=== PATIENT | female | born 1990 | race African-American/Black ===

== ENCOUNTER → 2020-07-13 14:24 | Outpatient (BNVA) | payer OTHER, SELFPAY | PROVIDERS: Visit Provider Obstetrics & Gynecology | DX: Z30.46 Encounter for surveillance of implantable subdermal contraceptive (principal) | CPT/HCPCS: 11982 ==

== ENCOUNTER 2021-02-19 11:24 | Outpatient (REF) | payer OTHER, SELFPAY ==
[2021-02-20 09:22] LABS: BV Int Neg Control Negative (Negative); BV Int Pos Control Positive (Positive)
== END 2021-02-19 11:25 | disposition home or self-care (01) ==
LOC: HO.LNP 11:24
PROVIDERS: Visit Provider Hospitalist
DX: B37.3 Candidiasis of vulva and vagina (principal)
CPT/HCPCS: 87086; 87480; 87510; 87660

== ENCOUNTER 2021-02-22 09:27 | Emergency (ER) | payer OTHER, SELFPAY ==
[2021-02-22 09:58] VITALS: BP 135/89; PULSE 102; RESP 18; TEMP 36.7; O2SAT 98; BMI 45.1
--- NOTE | 2021-02-22 10:37 | ED.FEMALEGU ---
HPI - Female Genitourinary General Chief complaint: Urogenital-Female Stated complaint: Abcess Time Seen by Provider: 02/22/21 10:36 Source: patient Mode of arrival: ambulatory Limitations: no limitations History of Present Illness HPI Narrative: Patient is a 30-year-old female with no significant past medical history who states she has some vaginal itching and discomfort x1 week. She states she went to urgent care 5 days ago and was tested for bacterial vaginosis panel and urinalysis. She states she never got results. She did receive a prescription for a UTI and for yeast. She has taken both prescriptions in full. She was not tested For gonorrhea or chlamydia at that time. She denies discharge or fevers. Patient states she is sexually active with 1 partner, it is not a new partner but she would like to be tested for STIs today. Related Data Previous Rx's Medication Instructions Recorded fluconazole 150 mg tablet 150 mg PO Q OTHER DAY 3 Days #2 tab 02/18/21 sulfamethoxazole 800 1 tab PO BID #14 tab 02/18/21 mg-trimethoprim 160 mg tablet doxycycline hyclate 100 mg PO BID 7 Days #14 tab 02/22/21 Allergies Allergy/AdvReac Type Severity Reaction Status Date / Time amoxicillin [Augmentin] Allergy Unknown rash Verified 02/22/21 09:58 clavulanic acid [Augmentin] Allergy Unknown rash Verified 02/22/21 09:58 Review of Systems Review of Systems: Yes all other systems are reviewed and are negative [facility] Past Medical History Medical History Patient denies medical problems Family History Family History Father History of liver disease Mother Family hx of hypertension Social History Social History Alcohol intake: current Alcohol intake frequency: holidays/special occasions only Alcohol type: beer, wine, hard liquor and other Advance Directives: No Advance Directives Information Provided: No Patient : No Sexual orientation: Straight/Heterosexual Gender identity: female Physical Exam Vital Signs: Vital Signs: Last Vital Signs Temp 98.0 F 02/22/21 09:58 Pulse 102 H 02/22/21 09:58 Resp 18 02/22/21 09:58 BP 135/89 02/22/21 09:58 Pulse Ox 98 02/22/21 09:58 Body Mass Index 45.1 Const: General: cooperative, healthy appearing, comfortable, no acute distress and well developed Orientation/consciousness: patient oriented x3 Limitations: no limitations HENMT: Head: Yes normal to inspection Eyes: General: appearance normal, both eyes and all related structures Neck: Neck: Yes normal visual inspection and Yes full ROM Resp: Effort & Inspection: normal respiratory effort and able to speak in complete sentences GI: Inspection: Yes normal to inspection Palpation (GI): Soft to palpation and nontender : External Female Exam: erythema, externally tender, No external swelling, No lesion, No laceration, No External ecchymosis (female), No urethral discharge, No lesion and No tender Skin: General skin exam: no rashes or lesions noted Neuro: General: patient oriented x3 Extrem: General: Yes normal to inspection Course Course Course Narrative: Advised patient that she was negative for the bacterial vaginosis panel. Discussed precautions for gonorrhea and chlamydia, will treat for both today. MDM - Female Genitourinary Lab Data Attestation: I reviewed the patient's lab results. Labs: Patient had bacterial vaginosis panel done on 02/18, negative. UA was also negative at that time. Discharge Plan Discharge Clinical Impression: Vaginitis Qualifiers: Chronicity: acute Qualified Code(s): N76.0 - Acute vaginitis Patient Disposition: Home, Self-Care Instructions: Sexually Transmitted Diseases (ED) Additional Instructions: If you do test positive for either gonorrhea or chlamydia, we will call you to let you know. If you do test positive, please do not have sexual relations for the next 30 days. You have been treated today for both, I have sent a prescription for doxycycline to your pharmacy, please take this prescription in full. As discussed, please do not go in this son when you are taking doxycycline as you could have a skin reaction. If you do test positive for either gonorrhea or chlamydia, please inform her partner so they can be tested and treated and both of you will need to be tested in 30 days to ensure you have cleared the disease. Prescriptions: New doxycycline hyclate 100 mg tablet 100 mg PO BID 7 Days Qty: 14 RF: 0 No Action sulfamethoxazole-trimethoprim [Bactrim DS] 800-160 mg tablet 1 tab PO BID Qty: 14 RF: 0 fluconazole 150 mg tablet 150 mg PO Q OTHER DAY 3 Days Qty: 2 RF: 0
[2021-02-22] MEDS: cefTRIAXone sodium 500 MG, Lidocaine HCl 1 % MPF 1 ML IM (12:17)
[2021-02-22 12:25] LABS: Glucose Urine UA NEG (NEG); Leukocyte Esterase Urine NEG (NEG); Nitrite Urine NEG (NEG); PH 6.5 (5.0-8.0); Specific Gravity - Urine <= 1.005 (1.005-1.025); Urine Blood TRACE (NEG); Urine Ketones NEG (NEG); Urine Protein NEG (NEG-TRACE)
[2021-02-22 12:36] LABS: Appearance Urine CLEAR; Color Urine YELLOW
[2021-02-22 12:44] LABS: UPreg QC Valid YES; Urine Pregnancy NEG (NEGATIVE)
[2021-02-22 13:01] LABS: Bacteria Urine TRACE /LPF; RBC Urine 0-2 /HPF (0); Squamous Epithelial Cell Urine 1+ /LPF; WBC Urine 0 /HPF (0-4)
[2021-02-22 14:39] LABS: CT PCR NOT DETECTED (Not Detect.); NG PCR DETECTED (Not Detect.)
== END 2021-02-22 12:52 | disposition home or self-care (01) ==
PROVIDERS: Physician Assistant; Emergency Provider Emergency Medicine; PCP Internal Medicine
DX: A54.02 Gonococcal vulvovaginitis, unspecified (principal)
CPT/HCPCS: 36415; 81001; 81025; 87491; 87591; 96372; 99282; 99284; J0696

== ENCOUNTER 2021-05-14 08:34 | Outpatient (REF) | payer OTHER, SELFPAY ==
[2021-05-15 09:20] LABS: CT PCR NOT DETECTED (Not Detect.); NG PCR NOT DETECTED (Not Detect.)
[2021-05-15 09:53] LABS: BV Int Neg Control Negative (Negative); BV Int Pos Control Positive (Positive)
== END 2021-05-14 08:35 | disposition home or self-care (01) ==
LOC: HO.LAB 08:34
PROVIDERS: PCP Internal Medicine; Visit Provider Obstetrics & Gynecology
DX: B37.3 Candidiasis of vulva and vagina (principal); Z11.3 Encounter for screening for infections with a predominantly sexual mode of transmission; Z11.8 Encounter for screening for other infectious and parasitic diseases; Z88.1 Allergy status to other antibiotic agents
CPT/HCPCS: 87480; 87491; 87510; 87591; 87660; 99212

== ENCOUNTER 2021-08-30 09:26 | Outpatient (REF) | payer OTHER, SELFPAY ==
[2021-08-30 14:08] LABS: CT PCR NOT DETECTED (Not Detect.); NG PCR NOT DETECTED (Not Detect.)
[2021-08-31 09:49] LABS: BV Int Neg Control Negative (Negative); BV Int Pos Control Positive (Positive)
[2021-09-03 12:56] LABS: HPV mRNA E6/E7 rflx Not Detected (Not Detected)
== END 2021-08-30 09:27 | disposition home or self-care (01) ==
LOC: HO.LAB 09:26
PROVIDERS: PCP Internal Medicine; Visit Provider Advanced Practice Midwife
DX: Z12.4 Encounter for screening for malignant neoplasm of cervix (principal); Z11.51 Encounter for screening for human papillomavirus (HPV); Z20.2 Contact with and (suspected) exposure to infections with a predominantly sexual mode of transmission; E66.01 Morbid (severe) obesity due to excess calories; F43.10 Post-traumatic stress disorder, unspecified; Z86.19 Personal history of other infectious and parasitic diseases
CPT/HCPCS: 87480; 87491; 87510; 87591; 87624; 87660; 88142

== ENCOUNTER 2022-07-08 10:16 | Outpatient (REF) | payer OTHER, SELFPAY ==
[2022-07-08 12:27] LABS: Influenza A PCR POSITIVE (Negative); Influenza B PCR NEGATIVE (Negative); Resp Syncy Virus RNA Qual PCR NEGATIVE (Negative); SARS COV2 PCR INHOUSE NEGATIVE (Negative)
== END 2022-07-08 10:17 | disposition home or self-care (01) ==
LOC: HO.LAB 10:16
PROVIDERS: Visit Provider Internal Medicine
DX: Z20.822 Contact with and (suspected) exposure to COVID-19 (principal); R43.9 Unspecified disturbances of smell and taste
CPT/HCPCS: 0241U

== ENCOUNTER 2022-07-18 08:33 | Outpatient (REF) | payer OTHER, SELFPAY ==
[2022-07-18 11:27] LABS: MANUAL DIFF FLAG NO
[2022-07-18 11:50] LABS: Basophils Percent Auto 0.3 % (0-2); Eosinophils Absolute Auto 0.2 X10*3/uL (0.0-0.4); Eosinophils Percent Auto 2.3 % (0-4); Hematocrit 41.7 % (37.0-47.0); Hemoglobin 14.1 g/dl (12.0-16.0); Imm Gran Abs Auto 0.05 X10*3/uL (0.00-0.03); Imm Gran Pct Auto 0.5 % (0.0-0.4); Mean Corpuscular HGB Conc 33.8 g/dl (31.0-35.0); Mean Corpuscular Hemoglobin 31.3 pg (27.0-33.0); Mean Corpuscular Volume 92.7 fL (80.0-98.0); Mean Platelet Volume 9.2 fL (9.4-12.3); Monocytes Absolute Auto 0.5 X10*3/uL (0.1-1.2); Monocytes Percent Auto 5.3 % (2-11); Neutrophils Absolute Auto 6.1 x10*3/uL (2.0-8.3); Neutrophils Percent Auto 61.6 % (45-73); Platelet Count 336 X10*3/uL (160-400); Red Cell Distribution Width 11.7 % (11.0-16.0); White Blood Count 9.9 X10*3/uL (4.8-10.8)
[2022-07-18 13:49] LABS: Alanine Aminotransferase 26 U/L (0-31); Albumin Level 4.1 g/dL (3.5-5.0); Alkaline Phosphatase 62 U/L (39-117); Anion Gap 11 (12-20); Aspartate Amino Transferase 17 U/L (5-31); Bilirubin Total 0.5 mg/dL (0.0-1.0); Blood Urea Nitrogen 11 mg/dL (9-16); Calcium 9.5 mg/dL (8.4-10.2); Carbon Dioxide 25 mmol/L (22-29); Chloride 107 mmol/L (96-108); Cholesterol 251 mg/dL; Estimated Glomerular Filt Rate > 60; Glucose Fasting 98 mg/dL (60-99); HDL Cholesterol 61 mg/dL; LDL Cholesterol Calculated 162 mg/dl; Potassium 4.5 mmol/L (3.3-5.1); Sodium 138 mmol/L (135-145); TSH reflex Free T4 0.97 uIU/mL (0.32-4.0); Total Protein 6.9 g/dL (6.5-8.0); Triglycerides 141 mg/dL
[2022-07-24 12:19] LABS: Vitamin D 25-OH, D2 <4 ng/mL; Vitamin D 25-OH, D3 27 ng/mL; Vitamin D 25-OH, Total 27 ng/mL (30-100)
== END 2022-07-18 08:34 | disposition home or self-care (01) ==
LOC: HO.HMGCLDS 08:33
PROVIDERS: PCP Internal Medicine; Visit Provider Internal Medicine
DX: Z00.01 Encounter for general adult medical examination with abnormal findings (principal); F41.1 Generalized anxiety disorder; E66.01 Morbid (severe) obesity due to excess calories
CPT/HCPCS: 36415; 80053; 80061; 82306; 84443; 85025

== ENCOUNTER 2023-03-19 08:08 | Outpatient (AMB) | payer OTHER, SELFPAY ==
--- NOTE | 2023-03-19 08:09 | A.OFFVIS_ITS ---
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 Scribed for BRADLEY Awan by Alem Macias biomedical engineer, on 03/19/2023 at 8:25 am EST. Transportation Mechanic Required: No Information Interpreted: non-clinical & clinical Electron Beam Welding Machine Operator: Electron Beam Welding Machine Operator Present (Rashida) Allergies amoxicillin [Augmentin] Allergy (Unknown, Verified 02/06/23 08:32) rash clavulanic acid [Augmentin] Allergy (Unknown, Verified 02/06/23 08:32) rash Is last menstrual period known: Yes Last menstrual period: 02/24/23 Post menopausal: No Patient : No HPI HPI Comments History of Present Illness Details She is a premenopausal woman presenting for annual exam. Admits depression and anxiety and is working on to getting a therapist. Reports seeing an internal vaginal lump without pain. She admits to eating healthy and tries to stay active with exercise. Currently sexually active. Uses condoms for BC. Has IUD in the past and experienced irregular bleeding. Regular monthly periods. Denies vaginal itching and irritation. STD screening offered and STD blood work; she accepts. Denies family hx of breast, colon and ovarian cancer. Last pap smear 08/30/21. She denies any contraindications to control such as: migraines with aura, history of DVT or pulmonary emboli, high blood pressure, liver disease, thrombolic disorders, Lupus, +OMAR, or smoking. Reviewed use, side effects and warnings including ACHES. [facility] Medical History Anxiety Depression Patient denies medical problems Family History Father History of liver disease Substance use disorder Mental health disorder Mother Family hx of hypertension Mental health disorder Sister Substance use disorder Mental health disorder Sister Mental health disorder Diabetes Sister Mental health disorder Maternal Grandmother Diabetes Social History Housing: House Alcohol intake: current Alcohol intake frequency: holidays/special occasions only Alcohol type: beer, wine, hard liquor and other Patient Tobacco Use Status: Never used Tobacco e-Cigarette/Vaping Use: Never Used Second Hand Smoke Exposure: No service: No Current occupational status: employed Sexual orientation: Straight/Heterosexual Gender identity: Female Cognitive needs: No Hearing needs: No Vision needs: No Female Reproductive History Menstrual Age of Menarche: 11 Duration of menses: 3-5 days Date of last menstrual period: 02/24/23 control method: none Total pregnancies: 1 Full term: 1 Number of Living Children: 1 Date of last pap smear: 08/30/21 (neg pap and hpv) History of abnormal pap smear: Yes (03/2020 +HPV) Physical Exam Vital Signs: Last Vital Signs BP 110/62 03/19/23 08:10 BMI result Body Mass Index 44.5 Const General: cooperative, healthy appearing, no acute distress, well developed and alert Orientation/consciousness: patient oriented x3 HEENT Head: Yes normal to inspection Eyes General: appearance normal, both eyes and all related structures Neck Neck: Yes normal visual inspection Thyroid: Thyroid normal Chest Chest palpation & inspection: normal inspection of the chest Breast/axilla inspection: normal inspection of the breasts (no puckering, dimpling, peau de orange, retraction, discharge, masses) Breast/axilla palpation: normal palpation of the breasts Resp Effort & Inspection: normal respiratory effort GI Inspection: Yes normal to inspection Palpation (GI): Soft to palpation (to palpation) Rectal Exam - Female: deferred Other: deep cervix; longest speculum utilized. General: Yes bladder normal to inspection External Female Exam: normal external appearance and normal appearance of the urethra Speculum Exam - Vagina: normal appearance of the vagina, normal palpation, normal vaginal discharge and other (normal hymenal tissue (area of patient concern)) Speculum Exam - Cervix: normal appearance of the cervix, normal palpation and Other cervical findings present (bled slightly with pap) Bimanual exam- vagina & uterus: normal palpation, normal palpation and other (limited due to body habitus) Bimanual Exam- Adnexa, other: normal adnexae and no masses Skin General skin exam: no rashes or lesions noted Neuro General: patient oriented x3 Cognition (Neuro): normal cognition Extrem General: Yes normal to inspection Psych Other: anxious/tense with exam, breathing and relaxation techniques utilized throughout the pelvic examination. Attitude: cooperative Thought process: Normal thought process present Assessment & Plan Assessment & Plan (1) Encounter for well woman exam: Code(s): Z01.419 - Encounter for gynecological examination (general) (routine) without abnormal findings Plan: Discussed: Current recommendations for pap smears per ASCCP guidelines Breast awareness and periodic self breast exams. Maintaining a healthy lifestyle including a well balanced diet and routine exercise. Normal anatomical evaluation; pt was reassured. Encouraged to use condoms for STD and prevention. RTO for control consult. Encouraged patient to sign up for patient portal. All of her questions and concerns were addressed to the best of my ability. RTO in one year for AG. (2) Potential exposure to STD: Code(s): Z20.2 - Contact with and (suspected) exposure to infections with a predominantly sexual mode of transmission Plan: BV testing and GC/CT panel done today. STD blood work ordered. Await results and treat accordingly. (3) control counseling: Code(s): Z30. - Encounter for other general counseling and advice on contraception Plan: Literature given. Contact office if decided to start BC. (4) Anxiety: Code(s): F41.9 - Anxiety disorder, unspecified (5) Depression: Code(s): F32.A - Depression, unspecified Orders: Orders CT NG by PCR Today [id number] - Encounter for gynecological examination (general) (routine) without abnormal findings Hepatitis B Core Antibody Today Z20.2 - Contact with and (suspected) exposure to infections with a predominantly sexual mode of transmission Hepatitis C Antibody Today Z20.2 - Contact with and (suspected) exposure to infections with a predominantly sexual mode of transmission HIV Ab/Ag Today Z20.2 - Contact with and (suspected) exposure to infections with a predominantly sexual mode of transmission Syphilis Screen Today Z20.2 - Contact with and (suspected) exposure to infections with a predominantly sexual mode of transmission Pap Smear Today Z01.419 - Encounter for gynecological examination (general) (routine) without abnormal findings Coding Level of Care Code Est Pt Prev Care 18-39y(83099) Diagnoses Encounter for well woman exam Z01.419 Potential exposure to STD Z20.2 control counseling Z30. Anxiety F41.9 Depression F32.A
[2023-03-19 08:10] VITALS: BP 110/62; BMI 44.5
== END 2023-03-19 08:49 | disposition home or self-care (01) ==
LOC: HO.HWS 08:08
PROVIDERS: PCP Internal Medicine; Visit Provider Advanced Practice Midwife
DX: Z01.419 Encounter for gynecological examination (general) (routine) without abnormal findings (principal); Z20.2 Contact with and (suspected) exposure to infections with a predominantly sexual mode of transmission; Z30.09 Encounter for other general counseling and advice on contraception; F41.9 Anxiety disorder, unspecified; F32.A Depression, unspecified
CPT/HCPCS: 99395

== ENCOUNTER 2023-03-19 08:08 | Outpatient (REF) | payer OTHER, SELFPAY ==
[2023-03-20 05:11] LABS: CT PCR NOT DETECTED (Not Detect.); NG PCR NOT DETECTED (Not Detect.)
[2023-03-24 05:09] LABS: HPV mRNA E6/E7 rflx Not Detected (Not Detected)
== END 2023-03-19 08:09 | disposition home or self-care (01) ==
LOC: HO.LNP 08:08
PROVIDERS: PCP Internal Medicine; Visit Provider Advanced Practice Midwife
DX: Z01.419 Encounter for gynecological examination (general) (routine) without abnormal findings (principal); Z11.51 Encounter for screening for human papillomavirus (HPV); Z20.2 Contact with and (suspected) exposure to infections with a predominantly sexual mode of transmission
CPT/HCPCS: 0353U; 87624; 88142

== ENCOUNTER 2023-05-01 09:43 | Outpatient (AMB) | payer OTHER, SELFPAY ==
--- NOTE | 2023-05-01 09:44 | MHC.PC.OV ---
Vital Signs 05/01/23 09:45 Height 5 ft 3 in Weight 249 lb 2 oz BMI 44.1 BP 132/86 Blood Pressure Location Rt brachial Position Sitting Pulse 97 Pulse Source Pulse Oximeter Pulse Oximetry (%) 97 Oxygen Delivery Method Room Air Intake Visit Reasons: 3 month follow up Allergies amoxicillin [Augmentin] Allergy (Unknown, Verified 05/01/23 09:45) rash clavulanic acid [Augmentin] Allergy (Unknown, Verified 05/01/23 09:45) rash Medication List - Last Reconciled 05/01/23 by Mateus Marroquin MD alprazolam 0.25 mg PO DAILY cetirizine (Zyrtec) 10 mg PO DAILY PRN fluoxetine (Prozac) 20 mg PO DAILY 90 days Tobacco use date assessed: 05/01/23 Dental Screening Dental Screen Date: 05/01/23 Did you have a dental visit in the last 12 months?: Yes Did you have a dental problem in the last 6 months where you did not have access to dental care?: No Was dental information given to patient?: Patient has dentist HPI 3 month follow up HPI Details Patient is a 33-year-old female came in today for her follow-up appointment Anxiety: Stable with fluoxetine and alprazolam 0.5 mg once a day refill sent Patient also have high lipids last time she had labs was July of last year, I have ordered labs again patient is to do them fasting She is morbidly obese with BMI of 44.1, patient is having difficulty losing weight. She has developed hives which has been happening every currently now, patient says that she also had a visit to emergency room in January because of that I have placed a referral for her to be evaluated by Allergy immunology. Meanwhile I would recommend for her to start keeping a food diary. [facility] Medical History Depression Anxiety Patient denies medical problems Family History Father History of liver disease Substance use disorder Mental health disorder Mother Family hx of hypertension Mental health disorder Sister Substance use disorder Mental health disorder Sister Mental health disorder Diabetes Sister Mental health disorder Maternal Grandmother Diabetes Social History Housing: House Alcohol intake: current Alcohol intake frequency: holidays/special occasions only Alcohol type: beer, wine, hard liquor and other Patient Tobacco Use Status: Never used Tobacco e-Cigarette/Vaping Use: Never Used Second Hand Smoke Exposure: No service: No Current occupational status: employed Sexual orientation: Straight/Heterosexual Gender identity: Female Cognitive needs: No Hearing needs: No Vision needs: No Female Reproductive History Menstrual Age of Menarche: 11 Questionnaire Thrive Questionnaire Date Thrive assessed: 12/26/22 AUDIT C Alcohol Use Questionnaire (AUDIT-C) 1. How often do you have a drink containing alcohol?: 2-4 times a month 2. How many drinks containing alcohol do you have on a typical day when you are drinking?: 1 or 2 3. How often do you have six or more drinks on one occasion?: Never Total Score: 2 Score Reviewed/Action Taken: Yes SANDRA-7 AMB Questionnaire SANDRA-7 Date SANDRA - 7 assessed: 12/26/22 Source: Developed by Drs. Contreras Zendejas, Rosa Nassar, Vishal Garces and colleagues, with an educational ja from [employer]. Review of Systems Const Denies chills and Denies fever(s) ENT Denies epistaxis and Denies nasal discharge Card Denies chest pain Resp Denies chest congestion, Denies cough and Denies hemoptysis GI Denies diarrhea and Denies nausea Skin/Breast Denies rash Neuro Reports no additional complaints Psych Reports no additional complaints Endo Reports no additional complaints Physical exam (Primary Care) Vital Signs: Last Vital Signs Pulse 97 05/01/23 09:45 BP 132/86 05/01/23 09:45 Pulse Ox 97 05/01/23 09:45 Oxygen Delivery Method Room Air 05/01/23 09:45 BMI result Body Mass Index 44.1 Tobacco/Smoking Status: Tobacco use Status Tobacco use date assessed 05/01/23 05/01/23 09:46 Patient Tobacco Use Status Never used Tobacco 05/01/23 09:46 e-Cigarette/Vaping Use Never Used 05/01/23 09:46 Thrive Assessment: Date of Thrive Assessment Date Thrive assessed 12/26/22 05/01/23 09:46 Const General: cooperative, comfortable and no acute distress Orientation/consciousness: patient oriented x3 HENMT Head: Yes normocephalic Eyes General: appearance normal, both eyes and all related structures Neck Neck: Yes supple Resp Effort & Inspection: normal respiratory effort, no cough and no stridor Cardio Rhythm: regular rhythm Heart sounds: S1 normal heart sound present and S2 normal heart sound present Skin Other: Hives some in patches some in linear noted on neck and left forearm General skin exam: turgor normal Neuro General: patient oriented x3, tone normal and moves all extremities Extrem Right lower extremity: no edema Left lower extremity: no edema Assessment and Plan Assessment & Plan (1) Hives: Code(s): L50.9 - Urticaria, unspecified (2) Major depression, recurrent: Code(s): F33.9 - Major depressive disorder, recurrent, unspecified Qualifiers: Active/Remission status: in partial remission Qualified Code(s): F33.41 - Major depressive disorder, recurrent, in partial remission (3) Anxiety, generalized: Code(s): F41.1 - Generalized anxiety disorder (4) Lipid disorder: Comment: Make healthy food choices . Eat lots of fruits, vegetables, whole grains, and low-fat dairy products. Limit the amount of meat and fried or fatty foods that you eat. Be active Walk, garden, or do something active for 30 minutes or more on most days of the week. If you smoke, stop smoking. Smoking increases the chance of heart attack or stroke, or develop cancer.If you are over weight, Lose weight, Being overweight increases the risk of many health problems. Avoid alcohol Alcohol can increase blood sugar and blood pressure. Code(s): E78.9 - Disorder of lipoprotein metabolism, unspecified (5) Morbid obesity due to excess calories: Code(s): E66.01 - Morbid (severe) obesity due to excess calories (6) Environmental allergies: Code(s): Z91.09 - Other allergy status, other than to drugs and biological substances Plan Patient is a 33-year-old female came in today for her follow-up appointment Anxiety: Stable with fluoxetine and alprazolam 0.5 mg once a day refill sent Patient also have high lipids last time she had labs was July of last year, I have ordered labs again patient is to do them fasting She is morbidly obese with BMI of 44.1, patient is having difficulty losing weight. She has developed hives which has been happening every currently now, patient says that she also had a visit to emergency room in January because of that I have placed a referral for her to be evaluated by Allergy immunology. Meanwhile I would recommend for her to start keeping a food diary. Meanwhile I have sent prednisone 10 mg to be taken once a day with food for 5 days She is already taking Zyrtec for allergies daily Orders: Orders Complete Blood Count Auto Diff Today E66.01 - Morbid (severe) obesity due to excess calories, E78.9 - Disorder of lipoprotein metabolism, unspecified, F33.9 - Major depressive disorder, recurrent, unspecified, F41.1 - Generalized anxiety disorder, L50.9 - Urticaria, unspecified Comprehensive [place]. Panel Fast Today E66.01 - Morbid (severe) obesity due to excess calories, E78.9 - Disorder of lipoprotein metabolism, unspecified, F33.9 - Major depressive disorder, recurrent, unspecified, F41.1 - Generalized anxiety disorder, L50.9 - Urticaria, unspecified Lipid Panel Today E66.01 - Morbid (severe) obesity due to excess calories, E78.9 - Disorder of lipoprotein metabolism, unspecified, F33.9 - Major depressive disorder, recurrent, unspecified, F41.1 - Generalized anxiety disorder, L50.9 - Urticaria, unspecified TSH reflex Free T4 Today E66.01 - Morbid (severe) obesity due to excess calories, E78.9 - Disorder of lipoprotein metabolism, unspecified, F33.9 - Major depressive disorder, recurrent, unspecified, F41.1 - Generalized anxiety disorder, L50.9 - Urticaria, unspecified Referrals Allergy & Immunology Referral L50.9 - Urticaria, unspecified Medications: New cetirizine (Zyrtec) 10 mg PO DAILY PRN 90 caps 0RF allergy symptoms prednisone 10 mg PO DAILY 5 tabs 0RF 5 days Refilled alprazolam 0.25 mg PO DAILY 30 tabs 0RF fluoxetine (Prozac) 20 mg PO DAILY 90 caps 0RF 90 days alprazolam 0.25 mg PO DAILY 30 tabs 2RF Coding Level of Care Code Est Pt Level 4 (50560) Diagnoses Hives L50.9 Recurrent major depressive disorder, in partial remission F33.41 Active/Remission status: in partial remission Anxiety, generalized F41.1 Lipid disorder E78.9 Morbid obesity due to excess calories E66.01 Environmental allergies Z91.09
[2023-05-01 09:45] VITALS: BP 132/86; PULSE 97; O2SAT 97; BMI 44.1
== END 2023-05-01 10:09 | disposition home or self-care (01) ==
PROVIDERS: PCP Internal Medicine; Visit Provider Internal Medicine
DX: L50.9 Urticaria, unspecified (principal); F33.41 Major depressive disorder, recurrent, in partial remission; E66.01 Morbid (severe) obesity due to excess calories; Z68.41 Body mass index [BMI] 40.0-44.9, adult; Z91.09 Other allergy status, other than to drugs and biological substances; F41.1 Generalized anxiety disorder; E78.9 Disorder of lipoprotein metabolism, unspecified
CPT/HCPCS: 99214

== ENCOUNTER 2024-03-08 09:22 | Outpatient (AMB) | payer OTHER, SELFPAY ==
--- NOTE | 2024-03-08 09:25 | A.OFFVIS_ITS ---
Vital Signs 03/08/24 09:30 Height 5 ft 3 in Weight 260 lb BMI 46.1 BP 118/70 Intake Visit Reasons: STD testing Legal Records Manager Services: Legal Records Manager Present Information Interpreted: clinical only Senior Policy Advisor: Senior Policy Advisor Present Allergies amoxicillin [Augmentin] Allergy (Unknown, Verified 03/08/24 09:30) rash clavulanic acid [Augmentin] Allergy (Unknown, Verified 03/08/24 09:30) rash Medication List - Last Reconciled 03/08/24 by Kenna Serrato CNM alprazolam 0.25 mg PO DAILY cetirizine (Zyrtec) 10 mg PO DAILY PRN fluoxetine (Prozac) 20 mg PO DAILY 90 days Is last menstrual period known: Yes Last menstrual period: 02/07/24 Do you need a note to return to daycare/school/sports/work: No HPI HPI STD testing: Details: Patient is here for STD screen she has noticed a little bit of the discharge with odor smells like BV though this morning she did not have the odor. She has only with her son's father. She is not contraceptive thing she says she needs to know little bit more about the methods she has used Mirena in the past and Nexplanon she has a history of irregular periods.. She says the Mirena was put in when she was asleep after procedure she thinks she had it in for about 3 years. [facility] Medical History Depression Anxiety Patient denies medical problems Family History Father History of liver disease Substance use disorder Mental health disorder Mother Family hx of hypertension Mental health disorder Sister Substance use disorder Mental health disorder Sister Mental health disorder Diabetes Sister Mental health disorder Maternal Grandmother Diabetes Social History Housing: House Alcohol intake: current Alcohol intake frequency: holidays/special occasions only Alcohol type: beer, wine, hard liquor and other Patient Tobacco Use Status: Never used Tobacco e-Cigarette/Vaping Use: Never Used Second Hand Smoke Exposure: No service: No Current occupational status: employed Sexual orientation: Straight/Heterosexual Gender identity: Female Cognitive needs: No Hearing needs: No Vision needs: No Female Reproductive History Menstrual Age of Menarche: 11 Duration of menses: 3-5 days Date of last menstrual period: 02/07/24 control method: none Total pregnancies: 1 Full term: 1 Date of last pap smear: 03/20/23 (negative) History of abnormal pap smear: Yes (2020+hpv) Physical Exam Other: Guarded exam relaxed but started saying I hate this, I hate this and clenched up just before speculum was introduced and continued to clench and say it hurt difficult to visualize cervix scant amount of thin whitish yellowish discharge seen vulva slightly reddened. External Female Exam: normal external appearance and normal appearance of the urethra Speculum Exam - Vagina: normal appearance of the vagina and normal vaginal discharge Speculum Exam - Cervix: normal appearance of the cervix and Cervical os closed Assessment & Plan Assessment & Plan (1) Potential exposure to STD: Code(s): Z20.2 - Contact with and (suspected) exposure to infections with a predominantly sexual mode of transmission Category: Medical (2) Anxiety, generalized: Code(s): F41.1 - Generalized anxiety disorder Category: Medical Plan Testing done for gonorrhea chlamydia trichomoniasis bacterial vaginosis and yea st with 2 Q-tips exam done with difficulty because of patient clenching even before the exam started. Discussed her history of any trauma what she denies. She just says she has always hated these exams. She says sex is okay with her partner. I offered her screening for blood work for STDs and place the orders. I also reviewed all of the methods of control and their side effects. She desired a letter for work and we will do our best to furnish it. She has fasting blood work to do for her primary so she will get the labs done at the same time.-I reviewed with the patient, all of the currently common used methods of control that are available. We reviewed how they work in the body, how they are taken, common side effects, uncommon side effects, precautions, and contraindications. -Discussed also factors that influence their effectiveness and use, and womens satisfaction with the method. -Discussed how each are used, and drawbacks of each method as well. -Methods covered included: condoms, control pills, control patches, control rings, Depo-Provera, Nexplanon, Mirena and Kyleena IUDs, and ParaGard IUDs. All of the above methods were covered in great detail including their side effect profiles and common experiences that women have and ways to mitigate against the negative experiences including attention to diet and exercise patient's with bleeding challenges that may occur her and efforts to time the initiation of the method to this start of the menstrual period. Orders: Orders Hepatitis B Surface Antigen Today Z20.2 - Contact with and (suspected) exposure to infections with a predominantly sexual mode of transmission Hepatitis C Antibody Today Z20.2 - Contact with and (suspected) exposure to infections with a predominantly sexual mode of transmission HIV Ab/Ag Today Z20.2 - Contact with and (suspected) exposure to infections with a predominantly sexual mode of transmission Syphilis Screen Today Z20.2 - Contact with and (suspected) exposure to infections with a predominantly sexual mode of transmission Coding Level of Care Code Est Pt Level 3 (84366) Diagnoses Potential exposure to STD Z20.2 Anxiety, generalized F41.1
[2024-03-08 09:30] VITALS: BP 118/70; BMI 46.1
== END 2024-03-08 10:41 | disposition home or self-care (01) ==
LOC: HO.HWSM 09:22
PROVIDERS: PCP Internal Medicine; Visit Provider Advanced Practice Midwife
DX: Z20.2 Contact with and (suspected) exposure to infections with a predominantly sexual mode of transmission (principal); F41.1 Generalized anxiety disorder
CPT/HCPCS: 99213

== ENCOUNTER 2024-03-08 09:22 | Outpatient (REF) | payer OTHER, SELFPAY ==
[2024-03-09 06:03] LABS: CT PCR NOT DETECTED (Not Detect.); NG PCR NOT DETECTED (Not Detect.)
[2024-03-09 08:56] LABS: Bacterial Vaginosis PCR POSITIVE (Negative); Candida Group PCR DETECTED (Not Detect); Candida glab krusei PCR NOT DETECTED (Not Detect); Trichomonas vaginalis PCR NOT DETECTED (Not Detect)
== END 2024-03-08 09:23 | disposition home or self-care (01) ==
LOC: HO.LAB 09:22
PROVIDERS: PCP Internal Medicine; Visit Provider Advanced Practice Midwife
DX: N89.8 Other specified noninflammatory disorders of vagina (principal); F41.1 Generalized anxiety disorder; Z97.5 Presence of (intrauterine) contraceptive device; Z20.2 Contact with and (suspected) exposure to infections with a predominantly sexual mode of transmission
CPT/HCPCS: 0352U; 87491; 87591; 99212

== ENCOUNTER → 2024-05-13 11:30 | Outpatient (BNVA) | payer OTHER, SELFPAY | PROVIDERS: PCP Internal Medicine | DX: F41.1 Generalized anxiety disorder (principal); F33.41 Major depressive disorder, recurrent, in partial remission; E66.01 Morbid (severe) obesity due to excess calories; Z68.42 Body mass index [BMI] 45.0-49.9, adult; E55.9 Vitamin D deficiency, unspecified; E78.9 Disorder of lipoprotein metabolism, unspecified; F42.9 Obsessive-compulsive disorder, unspecified; Z79.899 Other long term (current) drug therapy | CPT/HCPCS: 96127; 99212 ==

== ENCOUNTER 2024-05-13 11:39 | Outpatient (AMB) | payer OTHER, SELFPAY ==
[2024-05-13 11:39] VITALS: BP 118/70; PULSE 78; O2SAT 99; BMI 46.1
--- NOTE | 2024-05-13 11:39 | MHC.PC.OV ---
Vital Signs 05/13/24 11:39 Height 5 ft 3 in Weight 260 lb BMI 46.1 BP 118/70 Blood Pressure Location Rt brachial Position Sitting Pulse 78 Pulse Source Pulse Oximeter Pulse Oximetry (%) 99 Oxygen Delivery Method Room Air Intake Visit Reasons: Anxiety Allergies amoxicillin [Augmentin] Allergy (Unknown, Verified 05/13/24 11:40) rash clavulanic acid [Augmentin] Allergy (Unknown, Verified 05/13/24 11:40) rash Medication List - Last Reconciled 05/13/24 by Mateus Marroquin MD alprazolam 0.25 mg PO DAILY cetirizine (Zyrtec) 10 mg PO DAILY PRN fluoxetine (Prozac) 20 mg PO DAILY 90 days Tobacco use date assessed: 05/13/24 Dental Screening Dental Screen Date: 05/13/24 Did you have a dental visit in the last 12 months?: Yes Did you have a dental problem in the last 6 months where you did not have access to dental care?: No Was dental information given to patient?: Patient has dentist HPI Anxiety HPI Details Last visit was April of last year Patient did not come in for follow-up after that and ran out of her medication She was doing well with fluoxetine 20 mg and alprazolam once a day For the management of depression and anxiety She is tearful today talking about her anxiety Patient says that she does not know what is triggering it But for the past 2 months it has been gotten worse that she is having panic attacks Patient is also morbidly obese and having difficulty losing weight She has met with our behavior health coordinator today we will help patient set up with a therapist I have also ordered labs for the patient She is to return in 3 months for physical examination, labs are needed before visit fasting I am restarting her on fluoxetine 20 mg and alprazolam once a day as needed. [facility] Medical History Depression Anxiety Patient denies medical problems Family History Father History of liver disease Substance use disorder Mental health disorder Mother Family hx of hypertension Mental health disorder Sister Substance use disorder Mental health disorder Sister Mental health disorder Diabetes Sister Mental health disorder Maternal Grandmother Diabetes Social History Housing: House Alcohol intake: current Alcohol intake frequency: holidays/special occasions only Alcohol type: beer, wine, hard liquor and other Patient Tobacco Use Status: Never used Tobacco e-Cigarette/Vaping Use: Never Used Second Hand Smoke Exposure: No service: No Current occupational status: employed Sexual orientation: Straight/Heterosexual Gender identity: Female Cognitive needs: No Hearing needs: No Vision needs: No Female Reproductive History Menstrual Age of Menarche: 11 Questionnaire Thrive Questionnaire Date Thrive assessed: 05/13/24 I am a: Patient What is your living situation today?: I have a steady place to live Within the past 12 months, did the food you bought not last and you didn't have the money to get more?: Never true Within the past 12 months, did you worry whether your food would run out before you got money to buy more?: Never true Do you have trouble paying for medicines?: No Do you have trouble getting transportation to medical appointments?: No Do you have trouble paying your heating and electricity bill?: No Do you have trouble taking care of your child, family member or friend?: No Do you have trouble with day-to-day activities such as bathing, preparing meals, shopping, managing finances, etc.?: No Are you currently unemployed and looking for a job?: No Are you interested in more education?: No Please select the resources that you would like help with: None Currently or been in a relationship where the following occur: No concerns reported THRIVE Score: 0 AUDIT C Alcohol Use Questionnaire (AUDIT-C) 1. How often do you have a drink containing alcohol?: 2-4 times a month 2. How many drinks containing alcohol do you have on a typical day when you are drinking?: 1 or 2 3. How often do you have six or more drinks on one occasion?: Never Total Score: 2 Score Reviewed/Action Taken: Yes SANDRA-7 AMB Questionnaire SANDRA-7 Date SANDRA - 7 assessed: 05/13/24 Feeling nervous, anxious, or on edge: 0 = Not at all Not being able to stop or control worryin = Not at all Worrying too much about different things: 0 = Not at all Trouble relaxin = Not at all Being so restless that it is hard to sit still: 0 = Not at all Becoming easily annoyed or irritable: 0 = Not at all Feeling afraid as if something awful might happen: 0 = Not at all Total SANDRA-7 score (0-4 normal; 5-9 mild; 10-14 moderate; 15-21 severe): 0 Source: Developed by Drs. Contreras Zendejas, Rosa Nassar, Vishal Garces and colleagues, with an educational ja from [employer]. SANDRA-7 Assessment Billing SANDRA-7 Assessment Tool: SANDRA-7 Assessment 99674 Review of Systems Const Denies chills and Denies fever(s) ENT Denies epistaxis and Denies nasal discharge Card Denies chest pain Resp Denies chest congestion, Denies cough and Denies hemoptysis GI Denies diarrhea and Denies nausea Skin/Breast Denies rash Neuro Reports no additional complaints Psych Reports no additional complaints Endo Reports no additional complaints Physical exam (Primary Care) Vital Signs: Last Vital Signs Pulse 78 05/13/24 11:39 BP 118/70 05/13/24 11:39 Pulse Ox 99 05/13/24 11:39 Oxygen Delivery Method Room Air 05/13/24 11:39 BMI result Body Mass Index 46.1 Tobacco/Smoking Status: Tobacco use Status Tobacco use date assessed 05/13/24 05/13/24 11:42 Patient Tobacco Use Status Never used Tobacco 05/13/24 11:42 e-Cigarette/Vaping Use Never Used 05/13/24 11:42 Thrive Assessment: Date of Thrive Assessment Date Thrive assessed 05/13/24 05/13/24 11:42 Currently or been in a relationship where the following occur: No concerns reported Const General: cooperative, comfortable and no acute distress Orientation/consciousness: patient oriented x3 HENMT Head: Yes normocephalic Eyes General: appearance normal, both eyes and all related structures Neck Neck: Yes supple Resp Effort & Inspection: normal respiratory effort, no cough and no stridor Cardio Rhythm: regular rhythm Heart sounds: S1 normal heart sound present and S2 normal heart sound present Skin General skin exam: turgor normal Neuro General: patient oriented x3, tone normal and moves all extremities Extrem Right lower extremity: no edema Left lower extremity: no edema Coding Level of Care Code Est Pt Level 4 (77937) Complex EM visit Add On G2211 Diagnoses Anxiety, generalized F41.1 Recurrent major depressive disorder, in partial remission F33.41 Active/Remission status: in partial remission Obesity, morbid, BMI 40.0-49.9 E66.01 Vitamin D deficiency E55.9 Lipid disorder E78.9 Obsessive-compulsive disorder, unspecified type F42.9 Obsessive-compulsive disorder type: unspecified Additional Codes SANDRA-7 Assessment Billing - SANDRA-7 Assessment Tool: SANDRA-7 Assessment 69108 ([id number]) Assessment & Plan Assessment & Plan (1) Anxiety, generalized: Code(s): F41.1 - Generalized anxiety disorder Category: Medical (2) Major depression, recurrent: Code(s): F33.9 - Major depressive disorder, recurrent, unspecified Category: Medical Qualifiers: Active/Remission status: in partial remission Qualified Code(s): F33.41 - Major depressive disorder, recurrent, in partial remission (3) Obesity, morbid, BMI 40.0-49.9: Code(s): E66.01 - Morbid (severe) obesity due to excess calories Category: Medical (4) Vitamin D deficiency: Code(s): E55.9 - Vitamin D deficiency, unspecified Category: Medical (5) Lipid disorder: Comment: Make healthy food choices . Eat lots of fruits, vegetables, whole grains, and low-fat dairy products. Limit the amount of meat and fried or fatty foods that you eat. Be active Walk, garden, or do something active for 30 minutes or more on most days of the week. If you smoke, stop smoking. Smoking increases the chance of heart attack or stroke, or develop cancer.If you are over weight, Lose weight, Being overweight increases the risk of many health problems. Avoid alcohol Alcohol can increase blood sugar and blood pressure. Code(s): E78.9 - Disorder of lipoprotein metabolism, unspecified Category: Medical (6) Obsessive compulsive disorder: Code(s): F42.9 - Obsessive-compulsive disorder, unspecified Category: Medical Qualifiers: Obsessive-compulsive disorder type: unspecified Qualified Code(s): F42.9 - Obsessive-compulsive disorder, unspecified Plan Last visit was April of last year Patient did not come in for follow-up after that and ran out of her medication She was doing well with fluoxetine 20 mg and alprazolam once a day For the management of depression and anxiety She is tearful today talking about her anxiety Patient says that she does not know what is triggering it But for the past 2 months it has been gotten worse that she is having panic attacks Patient is also morbidly obese and having difficulty losing weight She has met with our behavior health coordinator today we will help patient set up with a therapist I have also ordered labs for the patient She is to return in 3 months for physical examination, labs are needed before visit fasting I am restarting her on fluoxetine 20 mg and alprazolam once a day as needed. Orders: Orders Complete Blood Count Auto Diff Today E55.9 - Vitamin D deficiency, unspecified, E66.01 - Morbid (severe) obesity due to excess calories, E78.9 - Disorder of lipoprotein metabolism, unspecified, F33.41 - Major depressive disorder, recurrent, in partial remission, F41.1 - Generalized anxiety disorder, F42.9 - Obsessive-compulsive disorder, unspecified Comprehensive [place]. Panel Fast Today E55.9 - Vitamin D deficiency, unspecified, E66.01 - Morbid (severe) obesity due to excess calories, E78.9 - Disorder of lipoprotein metabolism, unspecified, F33.41 - Major depressive disorder, recurrent, in partial remission, F41.1 - Generalized anxiety disorder, F42.9 - Obsessive-compulsive disorder, unspecified Lipid Panel Today E55.9 - Vitamin D deficiency, unspecified, E66.01 - Morbid (severe) obesity due to excess calories, E78.9 - Disorder of lipoprotein metabolism, unspecified, F33.41 - Major depressive disorder, recurrent, in partial remission, F41.1 - Generalized anxiety disorder, F42.9 - Obsessive-compulsive disorder, unspecified TSH reflex Free T4 Today E55.9 - Vitamin D deficiency, unspecified, E66.01 - Morbid (severe) obesity due to excess calories, E78.9 - Disorder of lipoprotein metabolism, unspecified, F33.41 - Major depressive disorder, recurrent, in partial remission, F41.1 - Generalized anxiety disorder, F42.9 - Obsessive-compulsive disorder, unspecified Vitamin D 25-OH (D2 and D3) Today E55.9 - Vitamin D deficiency, unspecified, E66.01 - Morbid (severe) obesity due to excess calories, E78.9 - Disorder of lipoprotein metabolism, unspecified, F33.41 - Major depressive disorder, recurrent, in partial remission, F41.1 - Generalized anxiety disorder, F42.9 - Obsessive-compulsive disorder, unspecified Medications: Refilled alprazolam 0.25 mg PO DAILY 30 tabs 2RF fluoxetine (Prozac) 20 mg PO DAILY 90 days 90 caps 0RF
== END 2024-05-13 11:55 | disposition home or self-care (01) ==
LOC: HO.HMCC 11:39
PROVIDERS: PCP Internal Medicine; Visit Provider Internal Medicine
DX: F41.1 Generalized anxiety disorder (principal); F33.41 Major depressive disorder, recurrent, in partial remission; E66.813 Obesity, class 3; Z68.42 Body mass index [BMI] 45.0-49.9, adult; E55.9 Vitamin D deficiency, unspecified; E78.9 Disorder of lipoprotein metabolism, unspecified; F42.9 Obsessive-compulsive disorder, unspecified

== ENCOUNTER 2024-08-17 12:29 | Outpatient (AMB) | payer OTHER, SELFPAY ==
[2024-08-17 12:32] VITALS: BP 122/66; PULSE 80; O2SAT 98; BMI 46.2
--- NOTE | 2024-08-17 12:32 | A.OFFPC_ITS ---
Vital Signs 08/17/24 12:32 Height 5 ft 3 in Weight 261 lb BMI 46.2 BP 122/66 Blood Pressure Location Lt brachial Position Sitting Pulse 80 Pulse Source Pulse Oximeter Pulse Oximetry (%) 98 Oxygen Delivery Method Room Air Intake Visit Reasons: Annual PE Allergies amoxicillin [Augmentin] Allergy (Unknown, Verified 08/17/24 12:33) rash clavulanic acid [Augmentin] Allergy (Unknown, Verified 08/17/24 12:33) rash Medication List - Last Reconciled 08/17/24 by Mateus Marroquin MD alprazolam 0.25 mg PO DAILY cetirizine (Zyrtec) 10 mg PO DAILY PRN fluoxetine (Prozac) 20 mg PO DAILY 90 days Tobacco use date assessed: 08/17/24 Dental Screening Dental Screen Date: 08/17/24 Did you have a dental visit in the last 12 months?: Yes Did you have a dental problem in the last 6 months where you did not have access to dental care?: No Was dental information given to patient?: Patient has dentist HPI Annual PE HPI Details History of Present Illness - The patient is a 34-year-old female pr esenting for a routine examination and medication management. - She is currently prescribed Alprazolam for an anxiety disorder and Fluoxetine for depression. The patient reports positive outcomes with the current medication regimen. - Her last comprehensive lab tests were completed in 2021 with a historical note of vitamin D deficiency. - The patient is overdue for lab work, n ot having them completed in the last three years, and is aware of its importance. - She has started going to the gym and e ngaging in physical activity regularly and denies experiencing any negative symptoms or complications. Health Maintenance - Lab work ordered by both myself and th e patient?s OBGYN. The patient is instructed to complete these tests while fasting. - Emphasis on the importance of regular labs, especially considering the previous vitamin D deficiency. [place] [facility] - need appointment for gynecological car e, patient states that she will book her own appointment Medications - Alprazolam, taken as needed for anxiet y - Fluoxetine, taken daily for depression Diagnostic results - CBC completed in 2021 - Historical note of low vitamin D level s approximately three years ago Review of Systems - Musculoskeletal: Denies any swelling - Gastrointestinal: Denies nausea, vomit ing, diarrhea - Cardiovascular/Respiratory: Denies avelino st pain, shortness of breath - General: No fever no chills - Neurological: No headaches no dizzin ess - Ear nose throat: No sore throat no hearing difficulty no ear pain - Endocrine: No polyuria polydipsia no heat intolerance - Genitourinary: No dysuria - Skin: No new complaints Physical Exam General: Cooperative, healthy appearing, comfortable, no acute distress Orientation: Patient oriented x3 Limitations: None Head: Normal to inspection Ears: Within normal limit visually Nose: Normal external nose present Face and sinus: Normal facial exam Eyes: Appearance normal, extraocular movement intact pupils reactive Neck: Normal visual inspection and supple Respiratory: Normal respiratory effort and able to speak in complete sentences. Clear to auscultation, no stridor Breast exam: Declined by the patient Cardiovascular: S1 and S2 GI: Normal to inspection. Soft to palpation and nontender Skin: Turgor normal, no acute findings Neuro: Patient oriented x3, motor sensory intact, balance intact, tandem pass Extremities: Normal to inspection, no swelling Patient Instructions - Schedule and complete all overdue lab work while fasting to update health records. - Continue current medication regimen of Alprazolam and Fluoxetine but ensure timely appointments for prescription refills as Alprazolam is a controlled substance. - Maintain new exercise routine and repo rt any new symptoms or adverse effects. [facility] Medical History Depression Anxiety Patient denies medical problems Family History Father History of liver disease Substance use disorder Mental health disorder Mother Family hx of hypertension Mental health disorder Sister Substance use disorder Mental health disorder Sister Mental health disorder Diabetes Sister Mental health disorder Maternal Grandmother Diabetes Social History Housing: House Alcohol intake: current Alcohol intake frequency: holidays/special occasions only Alcohol type: beer, wine, hard liquor and other Patient Tobacco Use Status: Never used Tobacco e-Cigarette/Vaping Use: Never Used Second Hand Smoke Exposure: No service: No Current occupational status: employed Sexual orientation: Straight/Heterosexual Gender identity: Female Cognitive needs: No Hearing needs: No Vision needs: No Female Reproductive History Menstrual Age of Menarche: 11 Questionnaire PHQ-9 Over the last 2 weeks, how often have you been bothered by any of the following problems? 1. Little interest or pleasure in doing things: not at all 2. Feeling down, depressed, or hopeless: not at all 3. Trouble falling or staying asleep, or sleeping too much: more than half the days 4. Feeling tired or having little energy: nearly every day 5. Poor appetite or overeating: several days 6. Feeling bad about yourself - or that you are a failure or have let yourself or your family down: not at all 7. Trouble concentrating on things, such as reading the newspaper or watching television: several days 8. Moving or speaking so slowly that other people could have noticed. Or the opposite - being so fidgety or restless that you have been moving around a lot more than usual: not at all 9. Thoughts that you would be better off or of hurting yourself in some way: not at all Total score: 7 Depression Screening Interpretation: Negative Depression Screening Done: Yes 47254 - PHQ-9 Billing: Yes Source: Developed by Drs. Contreras Zendejas, Rosa Nassar, Vishal Garces and colleagues, with an educational ja from [employer]. Thrive Questionnaire Date Thrive assessed: 08/17/24 I am a: Patient What is your living situation today?: I have a steady place to live Within the past 12 months, did the food you bought not last and you didn't have the money to get more?: Never true Within the past 12 months, did you worry whether your food would run out before you got money to buy more?: Never true Do you have trouble paying for medicines?: No Do you have trouble getting transportation to medical appointments?: No Do you have trouble paying your heating and electricity bill?: No Do you have trouble taking care of your child, family member or friend?: No Do you have trouble with day-to-day activities such as bathing, preparing meals, shopping, managing finances, etc.?: No Are you currently unemployed and looking for a job?: No Are you interested in more education?: No Please select the resources that you would like help with: None Currently or been in a relationship where the following occur: No concerns reported THRIVE Score: 0 AUDIT C Alcohol Use Questionnaire (AUDIT-C) 1. How often do you have a drink containing alcohol?: Monthly or less 2. How many drinks containing alcohol do you have on a typical day when you are drinking?: 1 or 2 3. How often do you have six or more drinks on one occasion?: Never Total Score: 1 SANDRA-7 AMB Questionnaire SANDRA-7 Date SANDRA - 7 assessed: 08/17/24 Feeling nervous, anxious, or on edge: 2 = More than half the days Not being able to stop or control worryin = More than half the days Worrying too much about different things: 2 = More than half the days Trouble relaxin = More than half the days Being so restless that it is hard to sit still: 0 = Not at all Becoming easily annoyed or irritable: 2 = More than half the days Feeling afraid as if something awful might happen: 2 = More than half the days Total SANDRA-7 score (0-4 normal; 5-9 mild; 10-14 moderate; 15-21 severe): 12 Source: Developed by Drs. Contreras Zendejas, Rosa Nassar, Vishal Garces and colleagues, with an educational ja from [employer]. Physical exam (Primary Care) Vital Signs: Last Vital Signs Pulse 80 08/17/24 12:32 BP 122/66 08/17/24 12:32 Pulse Ox 98 08/17/24 12:32 Oxygen Delivery Method Room Air 08/17/24 12:32 BMI result Body Mass Index 46.2 Tobacco/Smoking Status: Tobacco use Status Tobacco use date assessed 08/17/24 08/17/24 12:37 Patient Tobacco Use Status Never used Tobacco 08/17/24 12:37 e-Cigarette/Vaping Use Never Used 08/17/24 12:37 PHQ-9: PHQ-9 Score PHQ-9: Total score 7 08/17/24 12:37 Depression Screening Interpretation: Negative Thrive Assessment: Date of Thrive Assessment Date Thrive assessed 08/17/24 08/17/24 12:37 Currently or been in a relationship where the following occur: No concerns reported Coding Level of Care Code Est Pt Level 3 (21993) Est Pt Prev Care 18-39y(49674) Diagnoses Encounter for general adult medical examination with abnormal findings Z00.01 Recurrent major depressive disorder, in partial remission F33.41 Active/Remission status: in partial remission Anxiety, generalized F41.1 Vitamin D deficiency E55.9 Lipid disorder E78.9 Morbid obesity due to excess calories E66.01 Additional Codes PHQ-9 - 92676 - PHQ-9 Billing: Yes ([id number]) Assessment & Plan Assessment & Plan (1) Encounter for general adult medical examination with abnormal findings: Code(s): Z00.01 - Encounter for general adult medical examination with abnormal findings Category: Medical (2) Major depression, recurrent: Code(s): F33.9 - Major depressive disorder, recurrent, unspecified Category: Medical Qualifiers: Active/Remission status: in partial remission Qualified Code(s): F33.41 - Major depressive disorder, recurrent, in partial remission (3) Anxiety, generalized: Code(s): F41.1 - Generalized anxiety disorder Category: Medical (4) Vitamin D deficiency: Code(s): E55.9 - Vitamin D deficiency, unspecified Category: Medical (5) Lipid disorder: Comment: Make healthy food choices . Eat lots of fruits, vegetables, whole grains, and low-fat dairy products. Limit the amount of meat and fried or fatty foods that you eat. Be active Walk, garden, or do something active for 30 minutes or more on most days of the week. If you smoke, stop smoking. Smoking increases the chance of heart attack or stroke, or develop cancer.If you are over weight, Lose weight, Being overweight increases the risk of many health problems. Avoid alcohol Alcohol can increase blood sugar and blood pressure. Code(s): E78.9 - Disorder of lipoprotein metabolism, unspecified Category: Medical (6) Morbid obesity due to excess calories: Code(s): E66.01 - Morbid (severe) obesity due to excess calories Category: Medical Plan History of Present Illness - The patient is a 34-year-old female presenting for a routine examination and medication management. - She is currently prescribed Alprazolam for an anxiety disorder and Fluoxetine for depression. The patient reports positive outcomes with the current medication regimen. - Her last comprehensive lab tests were completed in 2021 with a historical note of vitamin D deficiency. - The patient is overdue for lab work, not having them completed in the last three years, and is aware of its importance. - She has started going to the gym and engaging in physical activity regularly and denies experiencing any negative symptoms or complications. Health Maintenance - Lab work ordered by both myself and the patient?s OBGYN. The patient is instructed to complete these tests while fasting. - Emphasis on the importance of regular labs, especially considering the previous vitamin D deficiency. [place] [facility] - need appointment for gynecological care, patient states that she will book her own appointment Medications - Alprazolam, taken as needed for anxiety - Fluoxetine, taken daily for depression Diagnostic results - CBC completed in 2021 - Historical note of low vitamin D levels approximately three years ago Review of Systems - Musculoskeletal: Denies any swelling - Gastrointestinal: Denies nausea, vomiting, diarrhea - Cardiovascular/Respiratory: Denies chest pain, shortness of breath - General: No fever no chills - Neurological: No headaches no dizziness - Ear nose throat: No sore throat no hearing difficulty no ear pain - Endocrine: No polyuria polydipsia no heat intolerance - Genitourinary: No dysuria - Skin: No new complaints Physical Exam General: Cooperative, healthy appearing, comfortable, no acute distress Orientation: Patient oriented x3 Limitations: None Head: Normal to inspection Ears: Within normal limit visually Nose: Normal external nose present Face and sinus: Normal facial exam Eyes: Appearance normal, extraocular movement intact pupils reactive Neck: Normal visual inspection and supple Respiratory: Normal respiratory effort and able to speak in complete sentences. Clear to auscultation, no stridor Breast exam: Declined by the patient Cardiovascular: S1 and S2 GI: Normal to inspection. Soft to palpation and nontender Skin: Turgor normal, no acute findings Neuro: Patient oriented x3, motor sensory intact, balance intact, tandem pass Extremities: Normal to inspection, no swelling Patient Instructions - Schedule and complete all overdue lab work while fasting to update health records. - Continue current medication regimen of Alprazolam and Fluoxetine but ensure timely appointments for prescription refills as Alprazolam is a controlled substance. - Maintain new exercise routine and report any new symptoms or adverse effects. Medications: Refilled alprazolam 0.25 mg PO DAILY 30 tabs 2RF fluoxetine (Prozac) 20 mg PO DAILY 90 days 90 caps 1RF
== END 2024-08-17 13:24 | disposition home or self-care (01) ==
PROVIDERS: PCP Internal Medicine; Visit Provider Internal Medicine
DX: Z00.01 Encounter for general adult medical examination with abnormal findings (principal); F33.41 Major depressive disorder, recurrent, in partial remission; E66.01 Morbid (severe) obesity due to excess calories; Z68.42 Body mass index [BMI] 45.0-49.9, adult; F41.1 Generalized anxiety disorder; E55.9 Vitamin D deficiency, unspecified; E78.9 Disorder of lipoprotein metabolism, unspecified

== ENCOUNTER → 2024-08-17 12:29 | Outpatient (BNVA) | payer OTHER, SELFPAY | PROVIDERS: PCP Internal Medicine; Visit Provider Internal Medicine | DX: Z00.01 Encounter for general adult medical examination with abnormal findings (principal); F33.41 Major depressive disorder, recurrent, in partial remission; F41.1 Generalized anxiety disorder; E55.9 Vitamin D deficiency, unspecified; E78.9 Disorder of lipoprotein metabolism, unspecified; E66.01 Morbid (severe) obesity due to excess calories; Z68.42 Body mass index [BMI] 45.0-49.9, adult | CPT/HCPCS: 96127; 99212; 99395 ==

== ENCOUNTER 2024-11-25 11:12 | Outpatient (REF) | payer OTHER, SELFPAY ==
[2024-11-25 13:15] LABS: MANUAL DIFF FLAG NO
[2024-11-25 13:31] LABS: Basophils Percent Auto 0.3 % (0-2); Eosinophils Absolute Auto 0.4 X10*3/uL (0.0-0.4); Eosinophils Percent Auto 4.8 % (0-4); Hematocrit 42.2 % (37.0-47.0); Hemoglobin 14.2 g/dl (12.0-16.0); Imm Gran Abs Auto 0.05 X10*3/uL (0.00-0.03); Imm Gran Pct Auto 0.5 % (0.0-0.4); Lymphocytes Absolute Auto 2.9 X10*3/uL (1.2-4.9); Lymphocytes Percent Auto 31.9 % (20-40); Mean Corpuscular HGB Conc 33.6 g/dl (31.0-35.0); Mean Corpuscular Hemoglobin 31.1 pg (27.0-33.0); Mean Corpuscular Volume 92.5 fL (80.0-98.0); Mean Platelet Volume 9.4 fL (9.4-12.3); Monocytes Absolute Auto 0.4 X10*3/uL (0.1-1.2); Monocytes Percent Auto 4.5 % (2-11); Neutrophils Absolute Auto 5.3 x10*3/uL (2.0-8.3); Platelet Count 274 X10*3/uL (160-400); Red Blood Count 4.56 X10*6/uL (4.20-5.50); Red Cell Distribution Width 11.4 % (11.0-16.0); White Blood Count 9.2 X10*3/uL (4.8-10.8)
[2024-11-25 14:29] LABS: Alanine Aminotransferase 15 U/L (0-31); Albumin Level 3.9 g/dL (3.5-5.0); Anion Gap 10 (12-20); Aspartate Amino Transferase 20 U/L (5-31); Bilirubin Total 0.4 mg/dL (0.0-1.0); Blood Urea Nitrogen 14 mg/dL (9-16); Calcium 9.3 mg/dL (8.4-10.2); Carbon Dioxide 26 mmol/L (22-29); Chloride 106 mmol/L (96-108); Cholesterol 260 mg/dL (<200); Estimated Glomerular Filt Rate > 60; Glucose Fasting 86 mg/dL (60-99); HDL Cholesterol 58 mg/dL (>40); LDL Cholesterol Calculated 172 mg/dL (<100); Potassium 4.4 mmol/L (3.3-5.1); Sodium 138 mmol/L (135-145); Total Protein 6.9 g/dL (6.5-8.0); Triglycerides 150 mg/dL (<150)
[2024-11-25 19:04] LABS: Alkaline Phosphatase 65 U/L (39-117)
[2024-12-01 15:13] LABS: Vitamin D 25-OH, D2 <4 ng/mL; Vitamin D 25-OH, D3 28 ng/mL; Vitamin D 25-OH, Total 28 ng/mL (30-100)
== END 2024-11-25 11:13 | disposition home or self-care (01) ==
LOC: HO.HMGCLDS 11:12
PROVIDERS: PCP Internal Medicine; Visit Provider Internal Medicine
DX: F33.41 Major depressive disorder, recurrent, in partial remission (principal); F41.1 Generalized anxiety disorder; E55.9 Vitamin D deficiency, unspecified; E66.01 Morbid (severe) obesity due to excess calories; Z68.42 Body mass index [BMI] 45.0-49.9, adult; E78.9 Disorder of lipoprotein metabolism, unspecified; F42.9 Obsessive-compulsive disorder, unspecified
CPT/HCPCS: 36415; 80053; 80061; 82306; 84443; 85025; 99212

== ENCOUNTER 2024-11-25 14:05 | Outpatient (AMB) | payer OTHER, SELFPAY ==
--- NOTE | 2024-11-25 14:14 | A.OFFPC_ITS ---
Vital Signs 11/25/24 14:15 Height 5 ft 3 in Weight 263 lb 6 oz BMI 46.6 BP 116/72 Blood Pressure Location Lt brachial Position Sitting Pulse 94 Pulse Source Pulse Oximeter Pulse Oximetry (%) 96 Oxygen Delivery Method Room Air Intake Visit Reasons: 3 months Follow up Allergies amoxicillin [Augmentin] Allergy (Unknown, Verified 11/25/24 14:17) rash clavulanic acid [Augmentin] Allergy (Unknown, Verified 11/25/24 14:17) rash Medication List - Last Reconciled 11/25/24 by Mateus Marroquin MD alprazolam 0.25 mg PO DAILY cetirizine (Zyrtec) 10 mg PO DAILY PRN fluoxetine (Prozac) 20 mg PO DAILY 90 days Tobacco use date assessed: 11/25/24 Dental Screening Dental Screen Date: 08/17/24 HPI 3 months Follow up HPI Details History - The patient is a 34-year-old female pr esenting with a three-month follow-up for anxiety and depression management. - She reports taking alprazolam, and flu oxetine with satisfactory control of her anxiety and depression symptoms. - She has undergone recent blood work, w hich shows no anemia and normal complete blood count (CBC); however, her metabolic profile results are still pending. - She has a history of vitamin D deficie ncy and is currently on supplementation. This deficiency was previously identified in the context of ongoing management. - She mentions using vitamin B12 supplem ents as well, although specifics regarding her B12 status were not discussed. - She reports she feels generally well a nd does not express any concerns or new symptoms at this time. Problem List - Anxiety Disorder - Major Depressive Disorder - Vitamin D Deficiency Patient Instructions - Continue taking prescribed medications as directed: alprazolam, escitalopram, and fluoxetine. - Continue vitamin D supplementation as previously prescribed. - Be aware of any new or worsening sympt oms and contact the clinic if any concer ns arise. - Plan to follow up in three months for the next review. Review of Systems - General: No fever no chills - Neurological: No headaches no dizziness - Ear nose throat: No sore throat no hearing difficulty no ear pain - Cardiovascular: No syncope, no chest pain, no palpitations - Gastrointestinal: No nausea vomiting or diarrhea - Endocrine: No polyuria polydipsia no heat intolerance - Genitourinary: No dysuria , no blood in urine Physical Exam - General: No acute distress - HEENT: No acute findings - Neck: Supple - Respiratory system: Able to talk in f ull sentences, no audible wheeze - Cardiovascular: S1-S2 regular in rate and rhythm - Gastrointestinal: No pain - Extremities: No new findings - [employer]ER: Alert awake oriented x3 motor se nsory intact - Skin: Normal turgor PFSH Medical History Depression Anxiety Patient denies medical problems Family History Father History of liver disease Substance use disorder Mental health disorder Mother Family hx of hypertension Mental health disorder Sister Substance use disorder Mental health disorder Sister Mental health disorder Diabetes Sister Mental health disorder Maternal Grandmother Diabetes Social History Housing: House Alcohol intake: current Alcohol intake frequency: holidays/special occasions only Alcohol type: beer, wine, hard liquor and other Patient Tobacco Use Status: Never used Tobacco e-Cigarette/Vaping Use: Never Used Second Hand Smoke Exposure: No service: No Current occupational status: employed Sexual orientation: Straight/Heterosexual Gender identity: Female Cognitive needs: No Hearing needs: No Vision needs: No Female Reproductive History Menstrual Age of Menarche: 11 Questionnaire Thrive Questionnaire Date Thrive assessed: 08/17/24 I am a: Patient What is your living situation today?: I have a steady place to live Within the past 12 months, did the food you bought not last and you didn't have the money to get more?: Never true Within the past 12 months, did you worry whether your food would run out before you got money to buy more?: Never true Do you have trouble paying for medicines?: No Do you have trouble getting transportation to medical appointments?: No Do you have trouble paying your heating and electricity bill?: No Do you have trouble taking care of your child, family member or friend?: No Do you have trouble with day-to-day activities such as bathing, preparing meals, shopping, managing finances, etc.?: No Are you currently unemployed and looking for a job?: No Are you interested in more education?: No Please select the resources that you would like help with: None Currently or been in a relationship where the following occur: No concerns reported THRIVE Score: 0 SANDRA-7 AMB Questionnaire SANDRA-7 Date SANDRA - 7 assessed: 08/17/24 Source: Developed by Drs. Contreras Zendejas, Rosa Nassar, Vishal Garces and colleagues, with an educational ja from [employer]. Physical exam (Primary Care) Vital Signs: Last Vital Signs Pulse 94 11/25/24 14:15 BP 116/72 11/25/24 14:15 Pulse Ox 96 11/25/24 14:15 Oxygen Delivery Method Room Air 11/25/24 14:15 BMI result Body Mass Index 46.6 Tobacco/Smoking Status: Tobacco use Status Tobacco use date assessed 11/25/24 11/25/24 14:17 Patient Tobacco Use Status Never used Tobacco 11/25/24 14:17 e-Cigarette/Vaping Use Never Used 11/25/24 14:17 Thrive Assessment: Date of Thrive Assessment Date Thrive assessed 08/17/24 11/25/24 14:17 Currently or been in a relationship where the following occur: No concerns reported Coding Level of Care Code Est Pt Level 3 (84316) Complex EM visit Add On G2211 Diagnoses Recurrent major depressive disorder, in partial remission F33.41 Active/Remission status: in partial remission Anxiety, generalized F41.1 Vitamin D deficiency E55.9 Assessment & Plan Assessment & Plan (1) Major depression, recurrent: Code(s): F33.9 - Major depressive disorder, recurrent, unspecified Category: Medical Qualifiers: Active/Remission status: in partial remission Qualified Code(s): F33.41 - Major depressive disorder, recurrent, in partial remission (2) Anxiety, generalized: Code(s): F41.1 - Generalized anxiety disorder Category: Medical (3) Vitamin D deficiency: Code(s): E55.9 - Vitamin D deficiency, unspecified Category: Medical Plan History - The patient is a 34-year-old female presenting with a three-month follow-up for anxiety and depression management. - She reports taking alprazolam, and fluoxetine with satisfactory control of her anxiety and depression symptoms. - She has undergone recent blood work, which shows no anemia and normal complete blood count (CBC); however, her metabolic profile results are still pending. - She has a history of vitamin D deficiency and is currently on supplementation. This deficiency was previously identified in the context of ongoing management. - She mentions using vitamin B12 supplements as well, although specifics regarding her B12 status were not discussed. - She reports she feels generally well and does not express any concerns or new symptoms at this time. Problem List - Anxiety Disorder - Major Depressive Disorder - Vitamin D Deficiency Patient Instructions - Continue taking prescribed medications as directed: alprazolam, escitalopram, and fluoxetine. - Continue vitamin D supplementation as previously prescribed. - Be aware of any new or worsening symptoms and contact the clinic if any concerns arise. - Plan to follow up in three months for the next review. Medications: Refilled alprazolam 0.25 mg PO DAILY 30 tabs 2RF fluoxetine (Prozac) 20 mg PO DAILY 90 days 90 caps 1RF
[2024-11-25 14:15] VITALS: BP 116/72; PULSE 94; O2SAT 96; BMI 46.6
--- OUTSIDE RECORDS SUMMARY | 2024-11-25 14:27 | XMS_ITS | Clinical Summary ---
Author Organization [facility] Address [address] [place] [address] Care Team Providers Care Bioinformatics Engineer Name Role Phone Unavailable Primary Care Provider Unavailabl e Allergies No known active allergies Medications No known medications Active Problems No known active problems Immunizations Name Administration Dates Next Due Influenza Quad (Flublok) 0.5mL >18 Yrs (RIV4) Social History Tobacco Use Types Packs/Day Years Used Date Smoking Tobacco: Never Assessed Sex and Gender Information Value Date Recorded Sex Assigned at Not on file Gender Identity Not on file Sexual Orientation Not on file Last Filed Vital Signs Vital Sign Reading Time Taken Comments Blood Pressure - - Pulse - - Temperature 37.1 ??C (98.8 ??F) 05/31/2020 9:16 AM ED T Respiratory Rate - - Oxygen Saturation - - Inhaled Oxygen Concentration - - Weight - - Height - - Body Mass Index - - Plan of Treatment Health Maintenance Due Date Last Done Comments Hepatitis B Vaccines (1 of 3 - 3-dose series) 1989 Hepatitis C Screening 1989 COVID-19 Vaccine (#1) 1989 Depression Screening 2001 Preventative Health Evaluation 2007 DTap / Tdap / Td (1 - Tdap) 2008 Cervical Cancer Screening (P ap Smear) 2010 Influenza Vaccine (#1) 2024 05/31/2020 Pneumococcal Vaccine Aged Out No long er eligible based on patient's age to complete this topic RSV Ped < 20 months Aged Out No longe r eligible based on patient's age to complete this topic
--- OUTSIDE RECORDS SUMMARY | 2024-11-25 14:27 | XMS_ITS | Clinical Summary ---
Author Organization [facility] Facility Address [address] [place] [id number] Care Team Providers Care Manager Configuration Name Role Phone Unavailable Primary Care Provider Unavailabl e Social History Tobacco Use Types Packs/Day Years Used Date Smoking Tobacco: Never Assessed Comments Unknown Sex and Gender Information Value Date Recorded Sex Assigned at Not on file Legal Sex Female 12:27 PM EDT Gender Identity Not on file Sexual Orientation Not on file Plan of Treatment Health Maintenance Due Date Last Done Comments Hepatitis B Vaccine (1 of 3 - 19+ 3-dose series) 2008 Influenza Vaccine (Season Ended) 2025 Pneumococcal Vaccine: Peds ( 0 to 5 Years) and At-Risk Patients (6 to 49 Years) Aged Out No longer eligible b ased on patient's age to complete this topic
== END 2024-11-25 14:26 | disposition home or self-care (01) ==
LOC: HO.HMCC 14:06
PROVIDERS: PCP Internal Medicine; Visit Provider Internal Medicine
DX: F33.41 Major depressive disorder, recurrent, in partial remission (principal); F41.1 Generalized anxiety disorder; E55.9 Vitamin D deficiency, unspecified

== ENCOUNTER 2025-02-02 09:16 | Outpatient (REF) | payer OTHER, SELFPAY ==
[2025-02-02 14:49] LABS: Bacterial Vaginosis PCR POSITIVE (Negative); Candida Group PCR DETECTED (Not Detect); Candida glab krusei PCR NOT DETECTED (Not Detect); Trichomonas vaginalis PCR NOT DETECTED (Not Detect)
[2025-02-02 15:24] LABS: CT PCR NOT DETECTED (Not Detect.); NG PCR NOT DETECTED (Not Detect.)
== END 2025-02-02 09:17 | disposition home or self-care (01) ==
LOC: HO.LAB 09:16
PROVIDERS: PCP Internal Medicine; Visit Provider Nurse Practitioner Family
DX: R30.0 Dysuria (principal); N76.0 Acute vaginitis; Z13.9 Encounter for screening, unspecified
CPT/HCPCS: 81003; 81515; 87086; 87491; 87591; 99212

== ENCOUNTER 2025-02-02 09:16 | Outpatient (AMB) | payer OTHER, SELFPAY ==
[2025-02-02 09:41] VITALS: BP 128/66; PULSE 87; TEMP 36.9; O2SAT 97; BMI 41.6
--- NOTE | 2025-02-02 09:41 | AM.OFFWIN_ITS ---
Intake Vital Signs 02/02/25 09:41 Height 5 ft 3 in Weight 235 lb BMI 41.6 BP 128/66 Blood Pressure Location Rt brachial Position Sitting Pulse 87 Pulse Source Pulse Oximeter Temp 98.4 F Temp Source Oral Pulse Oximetry (%) 97 Oxygen Delivery Method Room Air Intake Visit Reasons: EP Stomach discomfort Intake Note: pt presents with stomach discomfort, feels like she had a yeast infection 1.5 weeks ago, took a remaining pill for yeast infection that she had at home, relief x1 day then used otc monistat which only decreased systems. reports bloating, stomach pain,no back pain, no pain with urination but seems like bladder isn't fully emptying Patient Tobacco Use Status: Never used Tobacco Allergies amoxicillin (Augmentin) Allergy (Unknown, Verified 02/02/25 09:42) rash clavulanic acid (Augmentin) Allergy (Unknown, Verified 02/02/25 09:42) rash Medication List - Last Reconciled 02/02/25 by Michelle Rodriguez NP alprazolam 0.25 mg PO DAILY fluconazole 150 mg PO DAILY fluoxetine (Prozac) 20 mg PO DAILY 90 days sulfamethoxazole-trimethoprim 800-160 mg (Bactrim DS) 1 tab PO BID 3 days Do you need a note to return to daycare/school/sports/work: Yes (notes that she also did miss work yesterday) Return to daycare/school/sports/work/other note: work HPI HPI Comments History of Present Illness Details 34 y/o Female patient who presents to [facility] in clinic with c/o Urinary and vaginal symptoms for 1.5 weeks now. Pt reports vaginal itching, burning and discharge. Reports dysuria associated with abdominal cramping, and bloating. She did use OTC Monistat with minimal relief. She also did use Left over Diflucan one dose with some relief. Sexually active with 1 male partner - no condoms or control. She is due for her Period in 2 weeks. PENDING SALE TO [facility] Medical History (Updated 02/02/25 @ 10:28 by Michelle Rodriguez NP) Vaginitis and vulvovaginitis Dysuria Depression Anxiety Patient denies medical problems Family History Father History of liver disease Substance use disorder Mental health disorder Mother Family hx of hypertension Mental health disorder Sister Substance use disorder Mental health disorder Sister Mental health disorder Diabetes Sister Mental health disorder Maternal Grandmother Diabetes Social History Housing: House Alcohol intake: current Alcohol intake frequency: holidays/special occasions only Alcohol type: beer, wine, hard liquor and other Patient Tobacco Use Status: Never used Tobacco e-Cigarette/Vaping Use: Never Used Second Hand Smoke Exposure: No service: No Current occupational status: employed Sexual orientation: Straight/Heterosexual Gender identity: Female Cognitive needs: No Hearing needs: No Vision needs: No Female Reproductive History Menstrual Age of Menarche: 11 Review of Systems Const All systems reviewed & are unremarkable except as noted in HPI and below Physical Exam Vital Signs: Last Vital Signs Temp 98.4 F 02/02/25 09:41 Pulse 87 02/02/25 09:41 BP 128/66 02/02/25 09:41 Pulse Ox 97 02/02/25 09:41 Oxygen Delivery Method Room Air 02/02/25 09:41 BMI result Body Mass Index 41.6 Const General: no acute distress Nutritional Appearance: obese Orientation/consciousness: patient oriented x3 GI Inspection: Yes obesity Palpation (GI): Soft to palpation, not firm, Tenderness to palpation present (GI) suprapubicly, no guarding, not rigid and No hepatosplenomegaly present Auscultation: normal bowel sounds General: Yes bladder normal to palpation Speculum Exam - Vagina: abnormal vaginal discharge white and malodorous, erythematous, No vaginal bleeding and tenderness bilaterally Speculum Exam - Cervix: normal appearance of the cervix and Abnormal cervical discharge present white and malodorous Bimanual exam- vagina & uterus: bladder normal to palpation OB/external & speculum: No vaginal bleeding Neuro General: patient oriented x3 Psych Speech and movement: Normal speech and movement present Results AMB Urinalysis, Automated UA Leukoctes 125 Estela/uL Last Edit by Bahrath Kenyon CMA on 02/02/25 10:2 2 UA Nitrite Negative Last Edit by Bharath Kenyon CMA on 02/02/25 10:22 UA Urobilinogen 0.2 mg/dL Last Edit by Bharath Kenyon CMA on 02/02/25 10 :22 UA Protein 15 mg/dL Last Edit by Bharath Kenyon CMA on 02/02/25 10:22 UA pH 6.0 Last Edit by Bharath Kenyon CMA on 02/02/25 10:22 UA Blood 25 Leon/uL Last Edit by Bharath Kenyon CMA on 02/02/25 10:22 UA Specific [place] 1.030 Last Edit by Bharath Kenyon CMA on 02/02/25 10:22 UA Ketone Negative Last Edit by Bharath Kenyon CMA on 02/02/25 10:22 UA Bilirubin 1 mg/dL Last Edit by Bharath Kenyon CMA on 02/02/25 10:22 UA Glucose 0 mg/dL Last Edit by Bharath Kenyon CMA on 02/02/25 10:22 Results Reviewed Results Reviewed: Laboratory Last Values Urine pH (Auto) 6.0 02/02/25 10:18 Specific [place] (Auto) 1.030 02/02/25 10:18 Urine Protein (Auto) 15 mg/dL 02/02/25 10:18 Glucose (UA)(Auto) 0 mg/dL 02/02/25 10:18 Urine Ketones (Auto) Negative 02/02/25 10:18 Urine Blood (Auto) 25 Leon/uL 02/02/25 10:18 Urine Nitrite (Auto) Negative 02/02/25 10:18 Urine Bilirubin (Auto) 1 mg/dL 02/02/25 10:18 Urine Urobilinogen (Auto) 0.2 mg/dL 02/02/25 10:18 Leukocyte Esterase (Auto) 125 Estela/uL 02/02/25 10:18 Assessment & Plan Assessment & Plan (1) Dysuria: Code(s): R30.0 - Dysuria Plan: Urinalysis positive for Leuko Ordered Bactrim for 3 days. Patient allergic to PCN Sent urine for culture (2) Vaginitis and vulvovaginitis: Code(s): N76.0 - Acute vaginitis Plan: Vaginal/Pelvic exam consistent with Yeast - ordered Fluconazole Ordered Vaginal panel and CT/NG Orders: Orders AMB Urinalysis Automated Today Z13.9 - Encounter for screening, unspecified Urine Culture Today R30.0 - Dysuria Bacterial Vaginosis Panel Today N76.0 - Acute vaginitis, R30.0 - Dysuria CT NG by PCR Vag/Cerv Today N76.0 - Acute vaginitis, R30.0 - Dysuria Medications: New sulfamethoxazole-trimethoprim 800-160 mg (Bactrim DS) 1 tab PO BID 6 tabs 0RF 3 days R30.0 - Dysuria fluconazole TAKE 1 TABLET NOW, REPEAT SECOND DOSE IN 72 HOURS (3 DAYS). 150 mg PO DAILY 2 tabs 2RF N76.0 - Acute vaginitis Discontinued cetirizine (Zyrtec) Discontinued Reason: Patient Completed Course 10 mg PO DAILY PRN 90 caps 0RF allergy symptoms Coding Level of Care Code Est Pt Level 4 (55318) Diagnoses Dysuria R30.0 Vaginitis and vulvovaginitis N76.0 Time Spent (min) 20
--- OUTSIDE RECORDS SUMMARY | 2025-02-02 10:08 | XMS_ITS | Clinical Summary ---
Author Organization [facility] Address [address] [place] [address] Care Team Providers Care Self Rising Flour Mixer Name Role Phone Unavailable Primary Care Provider [...] - - Pulse - - Temperature 37.1 C (98.8 F) 05/31/2020 9:16 AM EDT Respiratory Rate - - Oxygen Saturation - [...] Screening (P ap Smear) 2010 Influenza Vaccine (Season Ended) 2025 05/31/20 20 Pneumococcal Vaccine Aged Out No long er eligible based on patient's age to complete this topic RSV Ped < 20 months Aged Out No longe r eligible based on patient's age to complete this topic
== END 2025-02-02 10:51 | disposition home or self-care (01) ==
PROVIDERS: PCP Internal Medicine; Visit Provider Nurse Practitioner Family
DX: R30.0 Dysuria (principal); N76.0 Acute vaginitis; Z13.9 Encounter for screening, unspecified

== ENCOUNTER 2025-02-24 10:06 | Outpatient (AMB) | payer OTHER, SELFPAY ==
--- NOTE | 2025-02-24 10:09 | MHC.PC.OV ---
Vital Signs 02/24/25 10:10 Height 5 ft 3 in Weight 241 lb BMI 42.7 BP 116/72 Blood Pressure Location Lt brachial Position Sitting Pulse 86 Pulse Source Pulse Oximeter Pulse Oximetry (%) 99 Intake Visit Reasons: 3m follow up Allergies amoxicillin (Augmentin) Allergy (Unknown, Verified 02/24/25 10:10) rash clavulanic acid (Augmentin) Allergy (Unknown, Verified 02/24/25 10:10) rash Medication List - Last Reconciled 02/24/25 by Mateus Marroquin MD alprazolam 0.25 mg PO DAILY fluoxetine (Prozac) 20 mg PO DAILY 90 days Tobacco use date assessed: 11/25/24 Dental Screening Dental Screen Date: 08/17/24 HPI 3m follow up HPI Details - The patient is a 34-year-old female presenting with a positive test taken two weeks prior to this visit. - Reports a history of anxiety and depression; had been taking alprazolam and fluoxetine prior to awareness. - Upon learning of her , she discontinued fluoxetine due to uncertainty about the safety of continued use during . Reports worsening anxiety since the cessation of fluoxetine and seeks guidance on medication management during . - Last visited the clinic in November; follow-up appointment with an mechanical integrity engineer is scheduled for March 17. - Reports symptoms of nausea and fatigue associated with . - Menstrual periods are irregular; last menstrual period was at the end of November. - States was unplanned. Medical History: - Anxiety - Depression - Hyperlipidemia (high cholesterol) Medications: - Alprazolam (for anxiety) - Fluoxetine (for depression, stopped upon awareness) Social History: - Patient has a 10-year-old child. - Current was unplanned. - Awaiting an upcoming appointment with an mechanical integrity engineer. - Reports experiencing high levels of anxiety after discontinuation of medications. Diagnostic Results: - Labs from November indicated normal CBC, normal white blood cell count, normal kidney function, normal liver enzymes, high cholesterol, and low vitamin D levels. Problem List - Generalized Anxiety Disorder - Major Depressive Disorder - - Hyperlipidemia - Vitamin D Deficiency Patient Instructions - Stop taking alprazolam immediately. - Continue taking fluoxetine at a reduced dose of 10 mg, after discussing risks with OBGYN on March 17. Risks reviewed with the patient's small chance of having cardiac problem in fetus Since her anxiety gets really bad and she is unable to stop, patient says that she tried, she will continue until seen by the mechanical integrity engineer - Start taking vitamin D supplements. - Obtain and take vitamins. - Monitor for any new symptoms and reach out if needed. Review of Systems - General: No fever no chills - Neurological: No headaches no dizziness - Ear nose throat: No sore throat no hearing difficulty no ear pain - Cardiovascular: No syncope, no chest pain, no palpitations - Gastrointestinal: No nausea vomiting or diarrhea - Endocrine: No polyuria polydipsia no heat intolerance - Genitourinary: No dysuria , no blood in urine Physical Exam General: No acute distress HEENT: No acute findings Neck: Supple Respiratory system: Able to talk in full sentences, no audible wheeze Cardiovascular: S1-S2 regular in rate and rhythm Gastrointestinal: Nauseous Extremities: No new findings RECEIVABLE MANAGER: Alert awake oriented x3 motor sensory intact Skin: Normal turgor PFSH Medical History Bacterial vaginosis Vaginitis and vulvovaginitis Dysuria Depression Anxiety Patient denies medical problems Surgical History S/P cholecystectomy Family History Father History of liver disease Substance use disorder Mental health disorder Mother Family hx of hypertension Mental health disorder Sister Substance use disorder Mental health disorder Sister Mental health disorder Diabetes Sister Mental health disorder Maternal Grandmother Diabetes Social History Housing: House Alcohol intake: current Alcohol intake frequency: holidays/special occasions only Alcohol type: beer, wine, hard liquor and other Patient Tobacco Use Status: Never used Tobacco e-Cigarette/Vaping Use: Never Used Second Hand Smoke Exposure: No service: No Current occupational status: employed Sexual orientation: Straight/Heterosexual Gender identity: Female Cognitive needs: No Hearing needs: No Vision needs: No Female Reproductive History Menstrual Age of Menarche: 11 Questionnaire Thrive Questionnaire Date Thrive assessed: 02/24/25 I am a: Patient What is your living situation today?: I have a steady place to live Within the past 12 months, did the food you bought not last and you didn't have the money to get more?: Never true Within the past 12 months, did you worry whether your food would run out before you got money to buy more?: Never true Do you have trouble paying for medicines?: No Do you have trouble getting transportation to medical appointments?: No Do you have trouble paying your heating and electricity bill?: No Do you have trouble taking care of your child, family member or friend?: No Do you have trouble with day-to-day activities such as bathing, preparing meals, shopping, managing finances, etc.?: No Are you currently unemployed and looking for a job?: No Are you interested in more education?: No Please select the resources that you would like help with: None Currently or been in a relationship where the following occur: No concerns reported THRIVE Score: 0 SANDRA-7 AMB Questionnaire SANDRA-7 Date SANDRA - 7 assessed: 08/17/24 Source: Developed by Drs. Contreras Zendejas, Rosa Nassar, Vishal Garces and colleagues, with an educational ja from [employer]. Physical exam (Primary Care) Vital Signs: Last Vital Signs Pulse 86 02/24/25 10:10 BP 116/72 02/24/25 10:10 Pulse Ox 99 02/24/25 10:10 BMI result Body Mass Index 42.7 Tobacco/Smoking Status: Tobacco use Status Tobacco use date assessed 11/25/24 02/24/25 10:13 Patient Tobacco Use Status Never used Tobacco 02/24/25 10:13 e-Cigarette/Vaping Use Never Used 02/24/25 10:13 Thrive Assessment: Date of Thrive Assessment Date Thrive assessed 02/24/25 02/24/25 10:13 Currently or been in a relationship where the following occur: No concerns reported Coding Level of Care Code Est Pt Level 3 (19571) Diagnoses , unspecified gestational age Z34.90 Weeks of gestation: unspecified Anxiety, generalized F41.1 Recurrent major depressive disorder, in partial remission F33.41 Active/Remission status: in partial remission Post-traumatic stress disorder F43.10 Obsessive-compulsive disorder, unspecified type F42.9 Obsessive-compulsive disorder type: unspecified Assessment & Plan Assessment & Plan (1) : Code(s): Z34.90 - Encounter for supervision of normal , unspecified, unspecified trimester Category: Medical Qualifiers: Weeks of gestation: unspecified Qualified Code(s): Z34.90 - Encounter for supervision of normal , unspecified, unspecified trimester (2) Anxiety, generalized: Code(s): F41.1 - Generalized anxiety disorder Category: Medical (3) Major depression, recurrent: Code(s): F33.9 - Major depressive disorder, recurrent, unspecified Category: Medical Qualifiers: Active/Remission status: in partial remission Qualified Code(s): F33.41 - Major depressive disorder, recurrent, in partial remission (4) Post-traumatic stress disorder: Code(s): F43.10 - Post-traumatic stress disorder, unspecified Category: Medical (5) Obsessive compulsive disorder: Code(s): F42.9 - Obsessive-compulsive disorder, unspecified Category: Medical Qualifiers: Obsessive-compulsive disorder type: unspecified Qualified Code(s): F42.9 - Obsessive-compulsive disorder, unspecified Plan - The patient is a 34-year-old female presenting with a positive test taken two weeks prior to this visit. - Reports a history of anxiety and depression; had been taking alprazolam and fluoxetine prior to awareness. - Upon learning of her , she discontinued fluoxetine due to uncertainty about the safety of continued use during . Reports worsening anxiety since the cessation of fluoxetine and seeks guidance on medication management during . - Last visited the clinic in November; follow-up appointment with an mechanical integrity engineer is scheduled for March 17. - Reports symptoms of nausea and fatigue associated with . - Menstrual periods are irregular; last menstrual period was at the end of November. - States was unplanned. Medical History: - Anxiety - Depression - Hyperlipidemia (high cholesterol) Medications: - Alprazolam (for anxiety) - Fluoxetine (for depression, stopped upon awareness) Social History: - Patient has a 10-year-old child. - Current was unplanned. - Awaiting an upcoming appointment with an mechanical integrity engineer. - Reports experiencing high levels of anxiety after discontinuation of medications. Diagnostic Results: - Labs from November indicated normal CBC, normal white blood cell count, normal kidney function, normal liver enzymes, high cholesterol, and low vitamin D levels. Problem List - Generalized Anxiety Disorder - Major Depressive Disorder - - Hyperlipidemia - Vitamin D Deficiency Patient Instructions - Stop taking alprazolam immediately. - Continue taking fluoxetine at a reduced dose of 10 mg, after discussing risks with OBGYN on March 17. Risks reviewed with the patient's small chance of having cardiac problem in fetus Since her anxiety gets really bad and she is unable to stop, patient says that she tried, she will continue until seen by the mechanical integrity engineer - Start taking vitamin D supplements. - Obtain and take vitamins. - Monitor for any new symptoms and reach out if needed. Medications: Changed From fluoxetine (Prozac) 20 mg PO DAILY 90 days 90 caps 1RF To fluoxetine 10 mg PO DAILY 90 caps 0RF 90 days
[2025-02-24 10:10] VITALS: BP 116/72; PULSE 86; O2SAT 99; BMI 42.7
--- OUTSIDE RECORDS SUMMARY | 2025-02-24 10:26 | XMS_ITS | Clinical Summary ---
Author Organization [facility] Address [address] [place] [address] Care Team Providers Care Typing Pool Supervisor Name Role Phone Unavailable Primary Care Provider [...] (P ap Smear) 2010 Influenza Vaccine (#1) 2025 05/31/2020 Pneumococcal Vaccine Aged Out No long er eligible based on patient's age to complete this topic RSV Ped < 20 months Aged Out No longe r eligible based on patient's age to complete this topic
--- OUTSIDE RECORDS SUMMARY | 2025-02-24 10:26 | XMS_ITS | Clinical Summary ---
Author Organization [facility] Address [address] [place] [address] Care Team Providers Care Manager Commission Name Role Phone Physician, No Pcp Primary Care Provider Unavaila ble Surgical History Surgery Date Site/Laterality Comments TONSILLECTOMY PROCEDURE: HISTORICAL TONSILLECTOMY Medical History Medical History Date Comments Irregular periods 07/15/2012 DX:Irregular p eriods Heartburn 07/15/2012 DX:Heartburn Overweight (BMI 25.0-29.9) 07/15/2012 DX:Ov erweight (BMI 25.0-29.9) Seasonal allergies DX:Seasonal a llergies Family History Medical History Relation Name Comments Other: hep c Father from l iver cirrhosis Diabetes Maternal Grandmother Hypertension Mother Other: cancer neg Other Breast cancer Neg Hx Colon cancer Neg Hx Ovarian cancer Neg Hx Prostate cancer Neg Hx Relation Name Status Comments Father cirrhosis Maternal Grandfather Maternal Grandmother Alive Mother Alive arthritis Other Paternal Grandfather Paternal Grandmother Alive Sister Alive x 2; A&W Social History Tobacco Use Types Packs/Day Years Used Date Smoking Tobacco: Never Smokeless Tobacco: Never Alcohol Use Standard Drinks/Week Comments No 0 (1 standard drink = 0.6 oz pur e alcohol) Comments Unknown Sex and Gender Information Value Date Recorded Sex Assigned at Not on file Legal Sex Female 10:30 AM EST Gender Identity Not on file Sexual Orientation Not on file Obstetrics History Plan of Treatment Upcoming Encounters Date Type Department Care Team (Late st Contact Info) Description 03/17/2025 1:00 PM EDT Office Visit [facility] [address] [place] [address] Mariyl Stapleton, TEOFILOM [address] [place] [address] Health Maintenance Due Date Last Done Comments Hepatitis B Vaccines (1 of 3 - 19+ 3-dose series) 2008 Cervical Cancer Screening: P ap Smear 2010 COVID-19 Vaccine (1 - 2023-2 5 season) 2024 Depression Screening 08/10/2024 DTaP,Tdap,and Td Vaccines (3 - Td or Tdap) 02/15/2025 02/15/2015, 07/15/2012 HIV Screening 02/17/2025 Hepatitis C Screening 02/17/2025 Social Influencers of Health Screening 02/17/2025 Influenza Vaccine (#1) 2025 , 07/15/2012 HIB Vaccines Aged Out No longer eligi ble based on patient's age to complete this topic HPV Vaccines Aged Out No longer eligi ble based on patient's age to complete this topic Hepatitis A Vaccines Aged Out No long er eligible based on patient's age to complete this topic IPV Vaccines Aged Out No longer eligi ble based on patient's age to complete this topic MMR Vaccines Aged Out No longer eligi ble based on patient's age to complete this topic Meningococcal ACWY Vaccine Aged Out N o longer eligible based on patient's age to complete this topic Meningococcal B Vaccine Aged Out No l onger eligible based on patient's age to complete this topic Pneumococcal Vaccine: Pediatrics (0 to 5 Years) and At-Risk Patients (6 to 49 Years) Aged Out No longer eligible b ased on patient's age to complete this topic RSV Immunization Patients Under 20 months Aged Out No longer eligible b ased on patient's age to complete this topic Varicella Vaccines Aged Out No longer eligible based on patient's age to complete this topic Insurance [facility] Care Teams Manager Commission Relationship Specialty Start Date End Date Physician, No Pcp PCP - General 02/17/25
--- OUTSIDE RECORDS SUMMARY | 2025-02-24 10:26 | XMS_ITS | Clinical Summary ---
Author Organization [facility] Address [address] [place] [id number] Care Team Providers Care Veterinary Surgeon Name Role Phone Unavailable Primary Care Provider [...] - 19+ 3-dose series) 2008 Influenza Vaccine (#1) 2025 Pneumococcal Vaccine: Peds ( 0 to 5 Years) and At-Risk Patients (6 to 49 Years) Aged Out No longer eligible b ased on patient's age to complete this topic
== END 2025-02-24 10:20 | disposition home or self-care (01) ==
LOC: HO.HMCC 10:06
PROVIDERS: PCP Internal Medicine; Visit Provider Internal Medicine
DX: Z34.90 Encounter for supervision of normal pregnancy, unspecified, unspecified trimester (principal); F41.1 Generalized anxiety disorder; F33.41 Major depressive disorder, recurrent, in partial remission; F43.10 Post-traumatic stress disorder, unspecified; F42.9 Obsessive-compulsive disorder, unspecified

== ENCOUNTER → 2025-02-24 10:06 | Outpatient (BNVA) | payer OTHER, SELFPAY | PROVIDERS: PCP Internal Medicine; Visit Provider Internal Medicine | DX: O99.340 Other mental disorders complicating pregnancy, unspecified trimester (principal); F41.1 Generalized anxiety disorder; F33.9 Major depressive disorder, recurrent, unspecified; F43.10 Post-traumatic stress disorder, unspecified; F42.9 Obsessive-compulsive disorder, unspecified; Z3A.00 Weeks of gestation of pregnancy not specified | CPT/HCPCS: 99212 ==